=== PATIENT | male | born 1960 | race Caucasian/White ===

== ENCOUNTER 2018-05-16 15:23 | Emergency (ER) | payer OTHER ==
[2018-05-16 15:59] LABS: #Basophils 0.1 thou/uL (0.0-0.2); #Eosinphils 0.1 thou/uL (0.0-0.7); #Lymphocytes 1.5 thou/uL (1.20-3.40); #Monocytes 0.8 thou/uL (0.11-0.59); #Neutrophils 8.3 thou/uL (1.40-6.50); %Basophils 0.6 % (0.0-1.0); %Eosinophils 1.2 % (0.0-10.0); %Lymphocytes 14.3 % (21.0-51.0); %Monocytes 7.2 % (0.0-10.0); %Neutrophils 76.8 % (42.0-75.0); Hemoglobin 13.4 g/dL (14.0-18.0); Mean Corpuscular HGB CONC 34.1 g/dL (32.0-36.0); Mean Corpuscular Hemoglobin 32.2 pg (27.0-31.0); Mean Corpuscular Volume 94.3 fL (78.0-98.0); Mean Platelet Volume 8.9 fL (7.4-10.4); Platelet Count 310 thou/uL (130-400); RBC Distribution Width 12.5 % (11.5-14.5); Red Blood Cell (RBC) Count 4.17 mill/uL (4.70-6.10); White Blood Cell (WBC) Count 10.8 thou/uL (4.8-10.8)
[2018-05-16 16:24] LABS: ALT (SGPT) 18 U/L (8-55); AST (SGOT) 27 U/L (5-34); Albumin 4.3 g/dL (3.5-5.0); Alkaline Phosphatase 87 U/L (40-150); Anion Gap 13 mmol/L (10-20); BUN (Urea Nitrogen) 17 mg/dL (8.4-25.7); Bilirubin, Total 0.3 mg/dL (0.2-1.2); CK (CPK) 203 U/L (30-200); Calc. Creatinine Clearance 0 mL/min (70-130); Calcium 9.3 mg/dL (7.8-10.44); Carbon Dioxide 27 mmol/L (22-29); Chloride 103 mmol/L (98-107); Estimated GFR-MDRD 48; Globulin 3.5 g/dL (2.4-3.5); Glucose 103 mg/dL (70-105); Potassium 4.3 mmol/L (3.5-5.1); Protein, Total 7.8 g/dL (6.0-8.3); Sodium 139 mmol/L (136-145)
[2018-05-16 16:29] LABS: CKMB 3.4 ng/mL (0-6.6); Troponin I Less than 0.010 ng/mL (< 0.028)
--- NOTE | 2018-05-16 16:50 | RAD ---
CHEST 2 VIEWS: Date: 05/16/18 COMPARISON: None. HISTORY: Irregular heart rate. FINDINGS: Mild increased linear interstitial density noted with pulmonary hyperinflation. No pneumothorax or pl eural fluid is seen and there is no focal consolidation or alveolar edema. There is a nodular density overlying the right lung base measuring 1.1 cm in transverse dimension. IMPRESSION: No acute findings. Nodular density overlies the right lung base on the frontal view. This could repr esent a pulmonary nodule or nipple shadow. Correlation with follow-up imaging with nipple markers adv ised. CODE T. POS: [facility]
== END 2018-05-16 16:43 | disposition home or self-care (01) ==
LOC: ERS 15:23
DX: R00.2 Palpitations (principal); E03.9 Hypothyroidism, unspecified; F32.9 Major depressive disorder, single episode, unspecified; F17.210 Nicotine dependence, cigarettes, uncomplicated; Z79.899 Other long term (current) drug therapy
CPT/HCPCS: 36415; 71046; 80053; 82553; 84484; 85025; 93005

== ENCOUNTER 2018-05-30 07:40 | Outpatient (CLI) | payer OTHER ==
--- NOTE | 2018-05-30 12:02 | CT ---
CT THORAX WITH CONTRAST CT ABDOMEN WITH CONTRAST: Date: 05/30/18 HISTORY: 58-year-old male with ICD-10: C20 malignant neoplasm of rectum. Rectal cancer diagnosed via polypectomy. Evaluate for depth of invasion and extent of disease. Imani luate for metastatic disease. MRI pelvis ordered as well. TECHNIQUE: IV contrast: Isovue-M 300. Oral contrast: Readi-Cat. COMPARISON: None available. FINDINGS: Diffusely prominent interstitial markings. No suspicious pulmonary nodule. No consolidation, bronchie ctasis, pleural effusion, pneumothorax, cardiomegaly, pericardial effusion, mediastinal lymphadenopat hy, hilar lymphadenopathy, axillary lymphadenopathy, or obvious destructive osseous lesion. Focal are a of scarring in anterior segment of left upper lobe with mild tree-in-bud nodularity and a 0.8 x 0.4 cm focal calcification, suggestive of low grade inflammatory/infectious peribronchiolitis and/or seq uelae of such. Trachea and major bronchi patent and clear. Normal liver with no metastasis. Normal bilateral kidneys, pancreas, adrenals, and spleen. No abdomin al aortic aneurysm. A few mildly enlarged upper paraaortic lymph nodes (up to 1 cm long axis) and por ta hepatis lymph nodes. No mesenteric lymphadenopathy. No free fluid. Visualized portions of colon an d small intestine in upper abdomen demonstrate no obvious pathology. IMPRESSION: No convincing evidence of metastatic disease in the thorax or upper abdomen. POS: [facility]
== END 2018-05-30 07:41 | disposition home or self-care (01) ==
LOC: CT 07:40
PROVIDERS: ATTEND Internal Medicine Hematology & Oncology
DX: C20 Malignant neoplasm of rectum (principal)
CPT/HCPCS: 71260; 74160

== ENCOUNTER 2018-06-08 06:39 | Outpatient (CLI) | payer MEDICARE ==
--- NOTE | 2018-06-08 11:17 | MRI ---
MRI PELVIS WITH AND WITHOUT CONTRAST: Date: 06/08/18 HISTORY: Rectal cancer and polyp. COMPARISON: No exams for comparison. TECHNIQUE: Multiplanar, multisequence MRI pelvis performed prior to and after the intravenous administration of contrast. FINDINGS: There is no mucosal based mass appreciated within the rectum or the rectosigmoid. Of note, the cancer was seen within a polyp during a polypectomy. The mesorectal fat is intact. The lateral rectal merlos are intact. Peritoneal reflection is intact. No abnormal focal areas of T1 marrow signal replacement to suggest osseous metastatic disease. No héctor nopathy. 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 IMPRESSION: 1. No evidence for rectal cancer. 2. 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 Dr. Bobo notified of findings via telephone at 0940 hours. CODE CR. POS: [facility]
== END 2018-06-08 06:40 | disposition home or self-care (01) ==
LOC: MRI 06:39
PROVIDERS: ATTEND Internal Medicine Hematology & Oncology
DX: Z08 Encounter for follow-up examination after completed treatment for malignant neoplasm (principal); K60.4 Rectal fistula; Z85.048 Personal history of other malignant neoplasm of rectum, rectosigmoid junction, and anus
CPT/HCPCS: 72197

== ENCOUNTER 2020-04-17 06:36 | Outpatient (CLI) | payer OTHER ==
[2020-04-17 11:57] LABS: Bilirubin Neg (Negative); Blood, Urine Negative (Negative); Clarity Clear (Clear); Glucose, Urine (Dipstick) Normal (Negative); Hemoglobin 12.1 g/dL (14.0-18.0); Ketone, Urine Negative (Negative); Leukocyte Negative (Negative); Mean Corpuscular HGB CONC 32.6 G/DL (32.0-36.0); Mean Corpuscular Hemoglobin 29.7 PG (27.0-33.0); Mean Corpuscular Volume 90.9 fl (80.0-100.0); Mean Platelet Volume 11.5 fl (7.4-10.4); Nitrite Negative (Negative); Platelet Count 249 10x3/uL (130-400); Protein, Urine (Dipstick) Negative (Neg-Trace); RBC Distribution Width 14.4 % (11.5-14.5); Red Blood Cell (RBC) Count 4.08 10x6/uL (4.40-5.80); Specific Gravity, Urine 1.005 (1.002-1.036); Urobilinogen Normal mg/dL (Less than 2)
[2020-04-17 12:04] LABS: Anion Gap 17 mmol/L (10-20); BUN (Urea Nitrogen) 15 mg/dL (8.4-25.7); Calc. Creatinine Clearance 0 mL/min (70-130); Calcium 8.5 mg/dL (7.8-10.44); Carbon Dioxide 25 mmol/L (23-31); Chloride 100 mmol/L (98-107); Estimated GFR-MDRD 57; Glucose 79 mg/dL (80-115); Potassium 4.2 mmol/L (3.5-5.1); Sodium 138 mmol/L (136-145)
[2020-04-17 12:16] LABS: INR-International Normal Ratio 0.9
[2020-04-17 12:20] LABS: Band 4 % (5-11); Eosinophils 4 % (0-10); Lymphocytes 19 % (21-51); Neutrophil 68 % (42-75)
[2020-04-17 12:21] LABS: Monocytes 5 % (0-10); Platelet Morphology Comment Appears Adequate; Reactive Lymphocytes 0 % (0-10)
[2020-04-17 12:22] LABS: MDiff Complete? YES; RBC Morphology Normal
[2020-04-17 12:31] LABS: Bacteria/HPF Rare-Few HPF (None Seen); RBC/HPF 0-3 HPF (0-3); Squamous Epithelial 0-3 HPF (0-3); WBC/HPF 0-3 HPF (0-3)
--- NOTE | 2020-04-17 21:10 | EKG ---
Test Reason : Blood Pressure : / mmHG Vent. Rate : 062 BPM Atrial Rate : 062 BPM P-R Int : 128 ms QRS Dur : 080 ms QT Int : 450 ms P-R-T Axes : 066 041 053 degrees QTc Int : 456 ms Normal sinus rhythm Normal ECG No previous ECGs available Confirmed by Ines BECERRA ([id number]) on 04/17/2020 9:10:37 PM Referred By: IERO Confirmed By:Ines BECERRA
[2020-04-18 14:43] LABS: SARS-CoV-2 MS2 Positive; SARS-CoV-2 N Gene Negative; SARS-CoV-2 S Gene Negative; SARS-CoV-2 by NAA Not Detected (NotDetected); SARS-CoV-2 orf1ab Negative
== END 2020-04-17 06:37 | disposition home or self-care (01) ==
LOC: LABBT 06:36
PROVIDERS: ATTEND Orthopaedic Surgery
DX: Z01.818 Encounter for other preprocedural examination (principal); Z20.828 Contact with and (suspected) exposure to other viral communicable diseases; M17.11 Unilateral primary osteoarthritis, right knee
CPT/HCPCS: 80048; 81001; 85025; 85610; 87081; 87635; 93005; 93010; U0003

== ENCOUNTER 2020-04-17 12:00 | Observation (INO) | payer MEDICARE ==
[2020-04-19 09:25] VITALS: BMI 29.0
[2020-04-22] MEDS ORDERED: Vancomycin 1.5 GRAM/300 ML BAG ONE (07:20)
[2020-04-22] MEDS ORDERED: Tranexamic Acid 1,000 MG/10 ML VIAL ONE ×2 (07:20→11:44)
[2020-04-22] MEDS ORDERED: Sodium Chloride 0.9% 100 ML ONE (07:20)
[2020-04-22] MEDS ORDERED: Midazolam HCl 2 mg/2 ml Vial ONE (08:16)
[2020-04-22] MEDS ORDERED: Fentanyl 100 MCG/2 ML VIAL ONE ×3 (08:16→12:19)
[2020-04-22] MEDS ORDERED: Fentanyl 100 MCG/2 ML VIAL IV PRN (08:37)
[2020-04-22] MEDS ORDERED: HYDROcodone/Acetaminophen 5/325 mg Tablet PO PRN (08:45)
[2020-04-22] MEDS ORDERED: Promethazine HCl 25 MG/ML VIAL IM PRN ×3 (08:45→11:23)
[2020-04-22] MEDS ORDERED: Ropivacaine HCl/PF 250 ML in Premix Bag 1 BAG NERVE BLCK SCH (08:45)
[2020-04-22] MEDS ORDERED: traMADol HCl 50 MG TAB PO PRN ×2 (08:45)
[2020-04-22] MEDS ORDERED: Zolpidem Tartrate 5 MG TAB PO PRN ×2 (08:45→11:13)
[2020-04-22] MEDS ORDERED: Ondansetron PF 4 MG/2 ML Vial IVP PRN ×2 (08:45→11:13)
[2020-04-22] MEDS ORDERED: Bupivacaine PF 0.5% 30 ML VIAL ONE (09:15)
[2020-04-22] MEDS ORDERED: Hydrocortisone Sod Succ/PF 100 mg/2 ml Vial ONE (09:23)
[2020-04-22] MEDS ORDERED: diphenhydrAMINE 25 MG CAP PO PRN (11:13)
[2020-04-22] MEDS ORDERED: Acetaminophen 325 MG TAB PO PRN (11:13)
[2020-04-22] MEDS ORDERED: Tranexamic Acid 1,000 MG in Sodium Chloride 0.9% 100 ML IVPB SCH (11:15)
[2020-04-22] MEDS ORDERED: Promethazine HCl 25 MG/ML VIAL SLOW IVP PRN (11:23)
[2020-04-22] MEDS ORDERED: Ondansetron HCl/PF 4 MG/2 ML Vial IVP PRN (11:23)
[2020-04-22] MEDS ORDERED: Ketorolac Tromethamine 30 MG/ML VIAL ONE (11:43)
[2020-04-22] MEDS ORDERED: Ropivacaine 0.2% HCl/PF (40 MG/20 ML VIAL) ONE (11:43)
[2020-04-22] MEDS ORDERED: PROPOFOL 200 MG/20 ML VIAL ONE (11:43)
[2020-04-22] MEDS ORDERED: Dexamethasone 20 MG/5 ML VIAL ONE (11:43)
[2020-04-22] MEDS ORDERED: Ondansetron PF 4 MG/2 ML Vial ONE (11:43)
[2020-04-22] MEDS ORDERED: Bupivacaine HCl 0.5%/Epinephrine 1:200,000/PF 30 ml Vial ONE (11:43)
[2020-04-22] MEDS ORDERED: PHENYLEPHRINE-NS 100 MCG/ML 10 ML SYRINGE ONE ×2 (11:43→13:04)
[2020-04-22] MEDS: Sodium Chloride 0.9% 1,000 ML IV SCH ×2 (13:18→22:05)
[2020-04-22] MEDS: Ketorolac Tromethamine 30 MG/ML VIAL IVP SCH ×2 (13:18→17:11)
[2020-04-22] MEDS: HYDROcodone/Acetaminophen 5/325 mg Tablet PO PRN (16:28)
[2020-04-22] MEDS: CEFAZOLIN 2 GM in Premix Bag 1 BAG IVPB SCH (17:12)
[2020-04-22] MEDS ORDERED: Vancomycin 1 GM in Premix Bag 1 BAG IVPB SCH (20:00)
--- NOTE | 2020-04-22 21:57 | OP ---
DATE OF PROCEDURE: 04/22/2020 PREOPERATIVE DIAGNOSIS: Right knee osteoarthrosis. POSTOPERATIVE DIAGNOSIS: Right knee osteoarthrosis. PROCEDURES PERFORMED: Right total knee replacement using Bouf pinless navigation. DISPLAY FABRICATION SUPERVISOR: Eric Morfin PA-C. The chiropractic assistant surgeon was present throughout the entirety of the procedure to include the approach, the placement of the prosthetic implant, and full and final closure. ESTIMATED BLOOD LOSS: Minimal. ANESTHESIA: The patient did have a general anesthetic as well as a preoperative block. IMPLANTS: To the right knee includes triathlon total knee system. The femur was a size 4 primary cruciate retaining femur. We used a size 4 primary tibial base plate. We used a 4 x 11 mm CS X3 tibial bearing and an asymmetric 29 x 9 X3 patella. DISPOSITION: He did go to recovery room in stable condition. INDICATIONS: This is a 60-year-old male, who failed nonoperative treatment for right knee osteoarthritis and at this time is presenting for knee replacement. COMPLICATIONS: None. PROCEDURE IN DETAIL: After all appropriate consent forms were explained and signed, the patient was taken back to the operating room and at this time was given general anesthetic. Once the level of anesthesia was appropriate, a well-padded tourniquet was placed on the right leg, and the leg was then prepped and draped in standard surgical fashion. The limb was exsanguinated and tourniquet taken up to 300 mmHg. Midline incision was made with a 10 blade down through the skin and subcutaneous tissue. Bovie electrocautery was used to coagulate any brisk venous bleeding. A new blade was used to make a medial parapatellar arthrotomy. Small subperiosteal release was performed medially and excess fat pad was removed. The knee was flexed up to gain access to the femur. The femur was navigated and distal femoral resection was made. Epicondylar access was used to align our sizing jig and this was pinned in place. We sized our femur to be a size 4 primary cruciate retaining femur. 4:1 cutting block was applied and pinned. Anterior and posterior chamfer cuts were then made. We navigated out our proximal tibia and made our proximal tibial resection. Spreaders were used to remove any posterior osteophytes off the back of the femur as well as remaining meniscal tissue. A long alignment elif was then used to achieve correct rotation of our tibial baseplate and a size 4 primary tibial base plate was chosen. This was pinned in place. We trialed the polyethylene and a 4 x 11 mm CS X3 tibial bearing polyethylene gave us full extension and good stability throughout range of motion. Two towel clips and a saw were used to cut our patella. Three lug nuts were drilled and a 29 x 9 X3 patella was trialed which sat nicely in the trochlear groove. We then drilled our femur and punched our tibia. All components were removed. The knee was thoroughly irrigated and dried. Cement was mixed into the cement gun on the back table. Components were then placed. The knee was held out in full extension until the cement had dried. All excess bone cement was removed. Multiple #2 Vicryl stitches as well as a Quill were used to close our extensor mechanism. 0 Quill followed by a running Monoderm was then used to close the skin. Surgicel glue was then used on the skin. Once this had dried, soft tissue dressing was applied to the limb, tourniquet was let down, and the toes pinked up nicely. The patient was then awakened and taken to the recovery room in stable condition. All counts were correct at the end of the case. The patient did receive preoperative IV antibiotics. The patient was injected with Marcaine for postoperative pain relief. Job ID: [id number]
[2020-04-22] MEDS: Aspirin 81 mg Enteric Coated Tablet PO SCH (22:04)
[2020-04-22] MEDS: Hydrocortisone 10 mg Tablet PO SCH (22:04)
[2020-04-23] MEDS: Ketorolac Tromethamine 30 MG/ML VIAL IVP SCH ×5 (00:25→23:29)
[2020-04-23] MEDS: CEFAZOLIN 2 GM in Premix Bag 1 BAG IVPB SCH (00:26)
[2020-04-23] MEDS: HYDROcodone/Acetaminophen 5/325 mg Tablet PO PRN ×4 (01:44→18:29)
[2020-04-23] MEDS: Levothyroxine Sodium 50 MCG TAB PO SCH (05:13)
[2020-04-23 05:29] LABS: Hemoglobin 10.3 g/dL (14.0-18.0); Mean Corpuscular HGB CONC 34.3 g/dL (32.0-36.0); Mean Corpuscular Hemoglobin 31.6 pg (27.0-31.0); Mean Corpuscular Volume 92.4 fL (78.0-98.0); Mean Platelet Volume 9.6 fL (7.4-10.4); Platelet Count 195 thou/uL (130-400); RBC Distribution Width 13.4 % (11.5-14.5); Red Blood Cell (RBC) Count 3.26 mill/uL (4.70-6.10); White Blood Cell (WBC) Count 18.1 thou/uL (4.8-10.8)
[2020-04-23] MEDS: Sodium Chloride 0.9% 1,000 ML IV SCH ×2 (06:19→13:22)
[2020-04-23] MEDS: Senokot S 8.6-50 MG TAB PO SCH ×2 (09:00→21:30)
[2020-04-23] MEDS: Multivitamin W/ Minerals 1 TAB PO SCH (09:00)
[2020-04-23] MEDS: Hydrocortisone 10 mg Tablet PO SCH ×2 (09:00→21:30)
[2020-04-23] MEDS: Aspirin 81 mg Enteric Coated Tablet PO SCH ×2 (09:00→21:30)
[2020-04-23] MEDS: Ferrous Gluconate 324 MG TAB PO SCH ×2 (09:00→21:30)
[2020-04-24] MEDS: Sodium Chloride 0.9% 1,000 ML IV SCH (03:29)
[2020-04-24] MEDS: HYDROcodone/Acetaminophen 5/325 mg Tablet PO PRN ×3 (03:33→13:28)
[2020-04-24] MEDS: Ketorolac Tromethamine 30 MG/ML VIAL IVP SCH (05:41)
[2020-04-24] MEDS: Levothyroxine Sodium 50 MCG TAB PO SCH (05:42)
[2020-04-24 07:06] LABS: Hemoglobin 8.9 g/dL (14.0-18.0); Mean Corpuscular HGB CONC 32.6 g/dL (32.0-36.0); Mean Corpuscular Hemoglobin 30.9 pg (27.0-31.0); Mean Corpuscular Volume 94.8 fL (78.0-98.0); Mean Platelet Volume 10.4 fL (7.4-10.4); Platelet Count 152 thou/uL (130-400); RBC Distribution Width 13.4 % (11.5-14.5); Red Blood Cell (RBC) Count 2.88 mill/uL (4.70-6.10)
[2020-04-24] MEDS: Hydrocortisone 10 mg Tablet PO SCH (08:19)
[2020-04-24] MEDS: Ferrous Gluconate 324 MG TAB PO SCH (08:19)
[2020-04-24] MEDS: Aspirin 81 mg Enteric Coated Tablet PO SCH (08:19)
[2020-04-24] MEDS: Multivitamin W/ Minerals 1 TAB PO SCH (08:19)
[2020-04-24] MEDS: Senokot S 8.6-50 MG TAB PO SCH (08:20)
[2020-04-24 14:56] VITALS: BP 127/77; TEMP 97.8
--- NOTE | 2020-04-25 14:29 | DIS ---
DATE OF ADMISSION: 04/22/2020 DATE OF DISCHARGE: 04/24/2020 This is Eric Morfin PA-C dictating a report for Kam Pichardo MD. PREOPERATIVE DIAGNOSIS: Right knee osteoarthritis. POSTOPERATIVE DIAGNOSIS: Right knee osteoarthritis. PROCEDURE: The patient underwent a right total knee replacement. HOSPITAL STAY: Unremarkable. Admitted to [address], where he worked with staff, Physical therapy, Occupational therapy, and progressed quite well. By postop day #2, he was ready to discharge home. DISCHARGE CONDITION: Good/stable. DISPOSITION: Home with family. FOLLOWUP: Would be in 10 to 14 days or sooner if there are problems or concerns. Job ID: [id number]
== END 2020-04-24 17:20 | disposition home or self-care (01) ==
LOC: SJJU 04-22 07:13 → INTOOBSV 04-22 07:13 → EDSTATUS 04-22 12:00 → SJJU 04-22 13:05
PROVIDERS: ADMIT Orthopaedic Surgery; ATTEND Orthopaedic Surgery
PROC: 0SRC0J9 Replacement of Right Knee Joint with Synthetic Substitute, Cemented, Open Approach (ICD-10-PCS; principal; 2020-04-22)
PROC: 8E0YXBZ Computer Assisted Procedure of Lower Extremity (ICD-10-PCS; 2020-04-22)
PROC: 3E0T3BZ Introduction of Anesthetic Agent into Peripheral Nerves and Plexi, Percutaneous Approach (ICD-10-PCS; 2020-04-22)
PROC: 3E0T3BZ Introduction of Anesthetic Agent into Peripheral Nerves and Plexi, Percutaneous Approach (ICD-10-PCS; 2020-04-22)
DX: M17.11 Unilateral primary osteoarthritis, right knee (principal); G89.18 Other acute postprocedural pain; E03.9 Hypothyroidism, unspecified; F17.210 Nicotine dependence, cigarettes, uncomplicated; E89.3 Postprocedural hypopituitarism; Z79.899 Other long term (current) drug therapy; Z88.5 Allergy status to narcotic agent
CPT/HCPCS: 20985; 27447; 64445; 64448; 85027 ×2; 96374; 97110 ×2; 97116 ×3; 97139 ×2; 98960; C1713; C1776; G0378; 36415; J0690; J1100; J1720; J1885; J2250; J2405; J2704; J2795; J3010; J3370; J3490; S0020

== ENCOUNTER 2020-11-20 08:03 | Emergency (ER) | payer MEDICARE ==
[2020-11-20] MEDS ORDERED: Cyclobenzaprine 10 MG TAB ONE (08:39)
[2020-11-20] MEDS ORDERED: Acetaminophen/Codeine 30-300mg Tablet ONE (08:39)
[2020-11-20] MEDS ORDERED: Acetaminophen 500 MG TAB ONE (08:59)
== END 2020-11-20 10:08 | disposition home or self-care (01) ==
LOC: ERS 08:03
DX: M25.552 Pain in left hip (principal); Z79.899 Other long term (current) drug therapy; E03.9 Hypothyroidism, unspecified; F17.210 Nicotine dependence, cigarettes, uncomplicated
CPT/HCPCS: 72170

== ENCOUNTER 2020-11-29 16:33 | Emergency (ER) | payer MEDICARE ==
[2020-11-29] MEDS ORDERED: diphenhydrAMINE 50 MG/ML VIAL ONE (18:39)
== END 2020-11-29 17:14 | disposition left against medical advice (07) ==
LOC: ERS 16:33
DX: Z53.21 Procedure and treatment not carried out due to patient leaving prior to being seen by health care provider (principal)
CPT/HCPCS: J1200

== ENCOUNTER 2020-11-29 18:00 | Emergency (ER) | payer MEDICARE ==
[2020-11-29] MEDS ORDERED: Famotidine/PF 20 mg/2ml Vial ONE (18:15)
== END 2020-11-29 19:57 | disposition home or self-care (01) ==
LOC: ERS 18:00
DX: L50.0 Allergic urticaria (principal); F17.210 Nicotine dependence, cigarettes, uncomplicated; Z79.899 Other long term (current) drug therapy
CPT/HCPCS: 96374; 96375; J1200; S0028

== ENCOUNTER 2022-07-22 12:17 | Outpatient (CLI) | payer MEDICARE ==
[2022-07-22 14:13] LABS: #Basophils 0.1 10x3/uL (0.0-0.2); #Eosinphils 0.3 10x3/uL (0.0-0.5); #Neutrophils 5.1 10x3/uL (1.5-8.4); %Basophils 0.9 % (0.0-2.0); %Eosinophils 3.9 % (0.0-6.0); %Lymphocytes 16.9 % (18.0-47.0); %Monocytes 12.3 % (0.0-10.0); %Neutrophils 65.5 % (40.0-75.0); Hemoglobin 12.8 g/dL (13.5-17.5); Mean Corpuscular HGB CONC 35.3 g/dL (32.0-36.0); Mean Corpuscular Hemoglobin 29.7 pg (27.0-33.0); Mean Corpuscular Volume 84.2 fl (81.2-95.1); Mean Platelet Volume 12.5 fl (7.4-10.4); Platelet Count 308 10x3/uL (150-450); RBC Distribution Width 13.1 % (11.5-14.5); Red Blood Cell (RBC) Count 4.31 10x6/uL (4.32-5.72); White Blood Cell (WBC) Count 7.8 10x3/uL (3.5-10.5)
[2022-07-22 14:45] LABS: Anion Gap 16 mmol/L (10-20); BUN (Urea Nitrogen) 9 mg/dL (8.4-25.7); Calc. Creatinine Clearance 0 mL/min (70-130); Carbon Dioxide 23 mmol/L (23-31); Chloride 89 mmol/L (98-107); Estimated GFR 77; Glucose 79 mg/dL (80-115); Potassium 4.2 mmol/L (3.5-5.1); Sodium 124 mmol/L (136-145)
== END 2022-07-22 12:18 | disposition home or self-care (01) ==
LOC: LABBT 12:17
PROVIDERS: ATTEND Orthopaedic Surgery
DX: Z01.812 Encounter for preprocedural laboratory examination (principal); M87.852 Other osteonecrosis, left femur
CPT/HCPCS: 80048; 85025; 85610; 87081

== ENCOUNTER 2022-07-23 05:41 | Inpatient (IN) | payer MEDICARE ==
[2022-07-22 10:11] VITALS: BMI 28.3
[2022-07-23] MEDS ORDERED: Sodium Chloride 0.9% 100 ML ONE ×2 (05:59→07:10)
[2022-07-23] MEDS ORDERED: Tranexamic Acid 1,000 MG/10 ML VIAL ONE (05:59)
[2022-07-23] MEDS ORDERED: Vancomycin 1 GM/200 ML (FROZEN) BAG ONE (05:59)
[2022-07-23] MEDS ORDERED: Midazolam HCl 2 mg/2 ml Vial ONE (06:23)
[2022-07-23] MEDS ORDERED: fentaNYL PF 100 MCG/2 ML SYRINGE ONE (06:24)
[2022-07-23] MEDS ORDERED: Propofol 1,000 MG/100 ML VIAL IV ONE (06:24)
[2022-07-23] MEDS ORDERED: Bupivacaine PF 0.5% 30 ML VIAL ONE ×2 (06:40→11:01)
[2022-07-23] MEDS ORDERED: Zolpidem Tartrate 5 MG TAB PO PRN (06:55)
[2022-07-23] MEDS ORDERED: Fentanyl 100 MCG/2 ML VIAL SLOW IVP PRN (06:55)
[2022-07-23] MEDS ORDERED: Promethazine HCl 25 MG/ML VIAL IM PRN (06:55)
[2022-07-23] MEDS ORDERED: HYDROcodone/Acetaminophen 10/325 mg Tablet PO PRN (06:55)
[2022-07-23] MEDS ORDERED: Ondansetron PF 4 MG/2 ML Vial IVP PRN (06:55)
[2022-07-23 07:07] LABS: SARS-CoV-2 NAA Rapid Test Not Detected (NotDetected)
[2022-07-23] MEDS ORDERED: CEFAZOLIN 2 GM VIAL ONE (07:10)
[2022-07-23] MEDS ORDERED: ePHEDrine 50 MG/ML VIAL ONE (07:30)
[2022-07-23] MEDS ORDERED: PHENYLEPHRINE-NS 100 MCG/ML 10 ML SYRINGE ONE ×2 (07:30→10:34)
[2022-07-23] MEDS ORDERED: hydrALAZINE 20 MG/ML VIAL ONE (09:29)
[2022-07-23] MEDS ORDERED: ePHEDrine 50 MG/ML VIAL IM SCH (10:15)
[2022-07-23] MEDS: Sodium Chloride 0.9% 1,000 ML IV SCH ×3 (11:36→21:13)
[2022-07-23] MEDS: Aspirin 81 mg Enteric Coated Tablet PO SCH ×3 (11:37→21:14)
[2022-07-23] MEDS: Hydrocortisone 10 mg Tablet PO SCH (11:37)
[2022-07-23] MEDS: HYDROcodone/Acetaminophen 10/325 mg Tablet PO PRN ×2 (13:51→23:56)
[2022-07-23] MEDS: CEFAZOLIN 2 GM in Sodium Chloride 0.9% 100 ML IVPB SCH ×2 (13:51→23:45)
[2022-07-23] MEDS ORDERED: Hydrocortisone 10 mg Tablet PO SCH (17:00)
[2022-07-24 06:25] LABS: Hemoglobin 10.7 g/dL (14.0-18.0); Mean Corpuscular HGB CONC 33.9 g/dL (32.0-36.0); Mean Corpuscular Hemoglobin 30.6 pg (27.0-31.0); Mean Corpuscular Volume 90.2 fl (78.0-98.0); Mean Platelet Volume 10.3 fL (7.4-10.4); Platelet Count 197 10x3/uL (130-400); RBC Distribution Width 12.6 % (11.5-14.5); Red Blood Cell (RBC) Count 3.49 mill/uL (4.70-6.10); White Blood Cell (WBC) Count 14.5 10x3/uL (4.8-10.8)
[2022-07-24] MEDS: Hydrocortisone 10 mg Tablet PO SCH (09:22)
[2022-07-24] MEDS: Ferrous Gluconate 324 MG TAB PO SCH ×2 (09:23→18:32)
[2022-07-24] MEDS: Senokot S 8.6-50 MG TAB PO SCH ×2 (09:23→20:48)
[2022-07-24] MEDS: Aspirin 81 mg Enteric Coated Tablet PO SCH ×2 (09:23→20:48)
[2022-07-24] MEDS: Acetaminophen 325 MG TAB PO PRN (09:23)
[2022-07-24] MEDS: Multivitamin W/ Minerals 1 TAB PO SCH (09:23)
[2022-07-24] MEDS: traMADol HCl 50 MG TAB PO PRN ×3 (09:24→23:56)
[2022-07-24] MEDS ORDERED: Hydrocortisone Sod Succ/PF 100 mg/2 ml Vial IVP SCH (11:15)
[2022-07-24 11:26] LABS: ALT (SGPT) 8 U/L (8-55); AST (SGOT) 35 U/L (5-34); Albumin 3.1 g/dL (3.4-4.8); Alkaline Phosphatase 59 U/L (40-110); Anion Gap 9 mmol/L (10-20); BUN (Urea Nitrogen) 13 mg/dL (8.4-25.7); Bilirubin, Total 0.9 mg/dL (0.2-1.2); Calc. Creatinine Clearance 66 mL/min (70-130); Calcium 7.8 mg/dL (7.8-10.44); Carbon Dioxide 20 mmol/L (23-31); Chloride 98 mmol/L (98-107); Estimated GFR 66; Globulin 2.2 g/dL (2.4-3.5); Glucose 94 mg/dL (80-115); Potassium 4.1 mmol/L (3.5-5.1); Protein, Total 5.3 g/dL (5.8-8.1); Sodium 123 mmol/L (136-145)
[2022-07-24] MEDS: Sodium Chloride 0.9% 1,000 ML IV SCH ×2 (12:03→18:32)
[2022-07-24] MEDS: Nicotine 14 MG PATCH TD SCH (12:06)
[2022-07-24 16:54] LABS: Bacteria/HPF None Seen HPF (None Seen); Bilirubin Negative (Negative); Blood, Urine Negative (Negative); Clarity Clear (Clear); Glucose, Urine (Dipstick) Normal (Negative); Ketone, Urine Negative (Negative); Leukocyte Negative Leu/uL (Negative); Nitrite Negative (Negative); Protein, Urine (Dipstick) Negative (Neg-Trace); RBC/HPF 0-3 HPF (0-3); Specific Gravity, Urine 1.011 (1.002-1.036); Squamous Epithelial None Seen HPF (0-3); Urobilinogen Normal mg/dL (Less than 2); WBC/HPF 0-3 HPF (0-3); pH, Urine 5.5 (5.0-9.0)
[2022-07-24 17:45] LABS: Creatinine, Urine 92.55 mg/dL (63-166)
[2022-07-24] MEDS: Hydrocortisone Sod Succ/PF 100 mg/2 ml Vial IVP SCH ×2 (18:32→23:58)
[2022-07-25 01:47] LABS: Anion Gap 10 mmol/L (10-20); BUN (Urea Nitrogen) 11 mg/dL (8.4-25.7); Calc. Creatinine Clearance 81 mL/min (70-130); Calcium 8.3 mg/dL (7.8-10.44); Carbon Dioxide 21 mmol/L (23-31); Chloride 101 mmol/L (98-107); Estimated GFR 83; Glucose 122 mg/dL (80-115); Potassium 3.9 mmol/L (3.5-5.1); Sodium 128 mmol/L (136-145)
[2022-07-25] MEDS: Sodium Chloride 0.9% 1,000 ML IV SCH ×4 (02:46→22:01)
[2022-07-25] MEDS: Hydrocortisone Sod Succ/PF 100 mg/2 ml Vial IVP SCH (04:32)
[2022-07-25 06:11] LABS: Hemoglobin 9.5 g/dL (14.0-18.0); Mean Corpuscular HGB CONC 34.5 g/dL (32.0-36.0); Mean Corpuscular Hemoglobin 31.2 pg (27.0-31.0); Mean Corpuscular Volume 90.7 fl (78.0-98.0); Mean Platelet Volume 10.5 fL (7.4-10.4); Platelet Count 182 10x3/uL (130-400); RBC Distribution Width 12.8 % (11.5-14.5); Red Blood Cell (RBC) Count 3.04 mill/uL (4.70-6.10); White Blood Cell (WBC) Count 17.7 10x3/uL (4.8-10.8)
[2022-07-25 06:25] LABS: Anion Gap 9 mmol/L (10-20); BUN (Urea Nitrogen) 9 mg/dL (8.4-25.7); Calc. Creatinine Clearance 92 mL/min (70-130); Calcium 8.2 mg/dL (7.8-10.44); Carbon Dioxide 20 mmol/L (23-31); Chloride 102 mmol/L (98-107); Estimated GFR 96; Glucose 119 mg/dL (80-115); Sodium 127 mmol/L (136-145)
[2022-07-25] MEDS: Aspirin 81 mg Enteric Coated Tablet PO SCH ×2 (09:47→20:41)
[2022-07-25] MEDS: Ferrous Gluconate 324 MG TAB PO SCH ×2 (09:48→18:49)
[2022-07-25] MEDS: Senokot S 8.6-50 MG TAB PO SCH ×2 (09:48→20:41)
[2022-07-25] MEDS: Multivitamin W/ Minerals 1 TAB PO SCH (09:48)
[2022-07-25] MEDS: traMADol HCl 50 MG TAB PO PRN ×2 (09:49→14:15)
[2022-07-25] MEDS: Nicotine 14 MG PATCH TD SCH (13:29)
[2022-07-25] MEDS: diphenhydrAMINE 25 MG CAP PO PRN ×2 (16:24→22:01)
[2022-07-25] MEDS: Hydrocortisone 10 mg Tablet PO SCH (18:49)
[2022-07-26 05:30] LABS: Hemoglobin 8.3 g/dL (14.0-18.0); Mean Corpuscular HGB CONC 33.4 g/dL (32.0-36.0); Mean Corpuscular Hemoglobin 30.8 pg (27.0-31.0); Mean Corpuscular Volume 92.3 fl (78.0-98.0); Mean Platelet Volume 10.8 fL (7.4-10.4); Platelet Count 191 10x3/uL (130-400); Red Blood Cell (RBC) Count 2.69 mill/uL (4.70-6.10); White Blood Cell (WBC) Count 11.4 10x3/uL (4.8-10.8)
[2022-07-26 05:54] LABS: Anion Gap 12 mmol/L (10-20); BUN (Urea Nitrogen) 11 mg/dL (8.4-25.7); Calc. Creatinine Clearance 90 mL/min (70-130); Calcium 8.3 mg/dL (7.8-10.44); Carbon Dioxide 20 mmol/L (23-31); Chloride 105 mmol/L (98-107); Estimated GFR 95; Glucose 77 mg/dL (80-115); Potassium 4.1 mmol/L (3.5-5.1); Sodium 133 mmol/L (136-145)
[2022-07-26] MEDS: Sodium Chloride 0.9% 1,000 ML IV SCH ×4 (06:48→20:40)
[2022-07-26] MEDS: Acetaminophen 325 MG TAB PO PRN ×2 (09:21→13:20)
[2022-07-26] MEDS: Hydrocortisone 10 mg Tablet PO SCH ×2 (09:21→18:22)
[2022-07-26] MEDS: Ferrous Gluconate 324 MG TAB PO SCH ×2 (09:21→18:21)
[2022-07-26] MEDS: traMADol HCl 50 MG TAB PO PRN ×3 (09:22→20:39)
[2022-07-26] MEDS: Senokot S 8.6-50 MG TAB PO SCH ×2 (09:23→20:42)
[2022-07-26] MEDS: Aspirin 81 mg Enteric Coated Tablet PO SCH ×2 (09:23→20:39)
[2022-07-26] MEDS: Multivitamin W/ Minerals 1 TAB PO SCH (09:23)
[2022-07-26] MEDS: Nicotine 14 MG PATCH TD SCH (13:14)
[2022-07-27] MEDS: Sodium Chloride 0.9% 1,000 ML IV SCH ×2 (05:15→15:47)
[2022-07-27] MEDS: traMADol HCl 50 MG TAB PO PRN ×2 (05:15→12:06)
[2022-07-27 05:30] LABS: #Eosinphils 0.3 thou/uL (0.0-0.7); #Lymphocytes 1.1 thou/uL (1.20-3.40); #Monocytes 0.7 thou/uL (0.11-0.59); #Neutrophils 7.5 thou/uL (1.40-6.50); %Basophils 0.3 % (0.0-1.0); %Lymphocytes 11.7 % (21.0-51.0); %Monocytes 7.5 % (0.0-10.0); %Neutrophils 77.5 % (42.0-75.0); Hemoglobin 9.7 g/dL (14.0-18.0); Mean Corpuscular HGB CONC 34.4 g/dL (32.0-36.0); Mean Corpuscular Hemoglobin 31.8 pg (27.0-31.0); Mean Corpuscular Volume 92.6 fl (78.0-98.0); Mean Platelet Volume 10.2 fL (7.4-10.4); Platelet Count 225 10x3/uL (130-400); Red Blood Cell (RBC) Count 3.04 mill/uL (4.70-6.10); White Blood Cell (WBC) Count 9.6 10x3/uL (4.8-10.8)
[2022-07-27 06:05] LABS: Anion Gap 10 mmol/L (10-20); BUN (Urea Nitrogen) 9 mg/dL (8.4-25.7); Calc. Creatinine Clearance 104 mL/min (70-130); Calcium 8.3 mg/dL (7.8-10.44); Carbon Dioxide 24 mmol/L (23-31); Chloride 103 mmol/L (98-107); Estimated GFR 100; Glucose 79 mg/dL (80-115); Potassium 3.1 mmol/L (3.5-5.1); Sodium 134 mmol/L (136-145)
[2022-07-27] MEDS: Ferrous Gluconate 324 MG TAB PO SCH (08:37)
[2022-07-27] MEDS: Aspirin 81 mg Enteric Coated Tablet PO SCH (08:37)
[2022-07-27] MEDS: Multivitamin W/ Minerals 1 TAB PO SCH (08:38)
[2022-07-27] MEDS: Hydrocortisone 10 mg Tablet PO SCH (08:38)
[2022-07-27] MEDS: Senokot S 8.6-50 MG TAB PO SCH (08:38)
[2022-07-27 11:40] VITALS: TEMP 98.4
[2022-07-27] MEDS: Nicotine 14 MG PATCH TD SCH (12:02)
[2022-07-27 15:49] VITALS: BP 126/71
== END 2022-07-27 15:23 | DRG 470 ==
LOC: SDC 05:41 → SURG A 11:26 → OBSVTOIN 07-24 11:46
PROVIDERS: ADMIT Orthopaedic Surgery; ATTEND Orthopaedic Surgery
PROC: 0SRB0J9 Replacement of Left Hip Joint with Synthetic Substitute, Cemented, Open Approach (ICD-10-PCS; principal; 2022-07-23)
DX: M16.12 Unilateral primary osteoarthritis, left hip (principal); E23.0 Hypopituitarism; E87.1 Hypo-osmolality and hyponatremia; E27.40 Unspecified adrenocortical insufficiency; M87.88 Other osteonecrosis, other site; Z96.651 Presence of right artificial knee joint; K21.9 Gastro-esophageal reflux disease without esophagitis; D64.9 Anemia, unspecified; F17.210 Nicotine dependence, cigarettes, uncomplicated; Z20.822 Contact with and (suspected) exposure to COVID-19; E03.9 Hypothyroidism, unspecified; D72.829 Elevated white blood cell count, unspecified; F32.A Depression, unspecified; I95.9 Hypotension, unspecified; Z88.5 Allergy status to narcotic agent; Z98.890 Other specified postprocedural states; Z88.8 Allergy status to other drugs, medicaments and biological substances
CPT/HCPCS: 36415; 51798; 80048; 80053; 81001; 82533; 82570; 83930; 83935; 84300; 84443; 84550; 85025; 85027; 85610; 87081; 96361; 96374; 96375; 96376; C1776; G0378; J0360; J1720; J2250; J2405; J2704; J3010; J3370-JW; J3490; J7050; S0020; U0002

== ENCOUNTER 2022-12-18 11:00 | Emergency (ER) | payer OTHER, MEDICARE | END 2022-12-18 11:49 | disposition home or self-care (01) | LOC: ERS 11:00 | DX: M25.562 Pain in left knee (principal); F17.210 Nicotine dependence, cigarettes, uncomplicated; W01.0XXA Fall on same level from slipping, tripping and stumbling without subsequent striking against object, initial encounter ==

== ENCOUNTER 2024-04-27 10:32 | Emergency (ER) | payer MEDICARE ==
[2024-04-27] MEDS ORDERED: Ketorolac Tromethamine 30 MG (1 mL) VIAL ONE (12:00)
== END 2024-04-27 14:41 | disposition home or self-care (01) ==
LOC: ERS 10:32
DX: M25.512 Pain in left shoulder (principal); M75.32 Calcific tendinitis of left shoulder; F17.210 Nicotine dependence, cigarettes, uncomplicated
CPT/HCPCS: 73030; 73200; 96372; 99283; J1885

== ENCOUNTER 2024-05-08 23:55 | Inpatient (IN) | payer MEDICARE ==
[2024-05-09 00:26] LABS: #Basophils 0.08 10x3/uL (0.0-0.2); %Basophils 0.8 % (0.0-1.0); %Eosinophils 1.1 % (0.0-10.0); %Lymphocytes 13.9 % (21.0-51.0); %Monocytes 6.3 % (0.0-10.0); %Neutrophils 77.6 % (42.0-75.0); Hematocrit 36.7 % (42.0-52.0); Hemoglobin 13.2 g/dL (14.0-18.0); Mean Corpuscular Hemoglobin 27.7 pg (27.0-31.0); Mean Corpuscular Volume 77.1 fL (78.0-98.0); Mean Platelet Volume 10.2 fL (7.4-10.4); Platelet Count 348 10x3/uL (130-400); RBC Distribution Width 13.7 % (11.5-14.5); Red Blood Cell (RBC) Count 4.76 mill/uL (4.70-6.10)
[2024-05-09 00:40] LABS: ALT (SGPT) 6 U/L (8-55); AST (SGOT) 23 U/L (5-34); Albumin 4.5 g/dL (3.4-4.8); Alkaline Phosphatase 99 U/L (40-110); Anion Gap 17 mmol/L (10-20); BUN (Urea Nitrogen) 5 mg/dL (8.4-25.7); Bilirubin, Total 0.7 mg/dL (0.2-1.2); Calc. Creatinine Clearance 0 mL/min (70-130); Calcium 9.7 mg/dL (7.8-10.44); Carbon Dioxide 19 mmol/L (23-31); Chloride 91 mmol/L (98-107); Estimated GFR 86; Globulin 3.9 g/dL (2.4-3.5); Glucose 93 mg/dL (80-115); Magnesium 1.8 mg/dL (1.6-2.6); Potassium 4.3 mmol/L (3.5-5.1); Protein, Total 8.4 g/dL (5.8-8.1); Sodium 123 mmol/L (136-145)
[2024-05-09 00:46] LABS: Troponin I Less than 0.010 ng/mL (< 0.028)
[2024-05-09] MEDS ORDERED: Acetaminophen 500 MG TAB ONE (00:59)
[2024-05-09 01:24] LABS: Actual Bicarbonate (HCO3v) 22.2 mEq/L (22-28); Base Excess -0.7 mEq/L (-2.0 to +3.0); Calcium, Ionized (venous) 0.99 mmol/L (1.16-1.32); Chloride (VBG) 90 mmol/L (98-106); Hematocrit-VBG 37 % (42.0-52.0); Hemoglobin (Hb) 12.6 g/dL (12.6-17.4); Sodium 121 mmol/L (133-146); pH (venous) 7.465 (7.32-7.43)
[2024-05-09 01:40] LABS: Amphetamine Not Detected (NotDetected); Barbiturates Screen Not Detected (NotDetected); Benzodiazepine Screen Not Detected (NotDetected); Cocaine Metabolite Screen Not Detected (NotDetected); Methadone Not Detected (NotDetected); Methamphetamine Not Detected (NotDetected); Opiate Screen Not Detected (NotDetected); Oxycodone Screen Not Detected (NotDetected); Phencyclidine (PCP) Not Detected (NotDetected); THC/Cannabinoid Screen Not Detected (NotDetected); Tricyclic Screen Not Detected (NotDetected)
[2024-05-09 01:47] LABS: Acetaminophen Less than 10 mcg/mL (Less than 10); Alcohol Less than 10.0 mg/dL (Less than 10); Salicylate Less than 8.0 mg/dL (Less than 8.0)
[2024-05-09] MEDS ORDERED: Morphine 4 MG/ML VIAL ONE (02:01)
[2024-05-09] MEDS ORDERED: fentaNYL 50 mcg/mL 1 mL Vial ONE (02:05)
[2024-05-09] MEDS ORDERED: Ondansetron PF 4 MG/2 ML Vial IVP PRN (03:39)
[2024-05-09] MEDS ORDERED: Acetaminophen 650 MG Suppository PR PRN (03:39)
[2024-05-09] MEDS: Sodium Chloride 0.9% 500 ML IV SCH (04:15)
[2024-05-09 04:29] VITALS: BMI 24.5
[2024-05-09] MEDS: Ondansetron ODT 4 MG TAB PO PRN (05:27)
[2024-05-09] MEDS: Acetaminophen 325 MG TAB PO SCH (06:18)
[2024-05-09] MEDS ORDERED: Hydrocortisone 10 mg Tablet PO SCH (09:00)
[2024-05-09] MEDS: Famotidine 20 MG TAB PO SCH (09:21)
[2024-05-09] MEDS: Pantoprazole DR 40 MG TAB PO SCH (09:21)
[2024-05-09] MEDS: Sodium Chloride 1 GM TAB PO SCH (09:22)
[2024-05-09] MEDS: Amlodipine 5 MG TAB PO SCH (09:22)
[2024-05-09] MEDS: Hydrocortisone 10 mg Tablet PO SCH (09:22)
[2024-05-09] MEDS: Famotidine/PF 20 mg/2ml Vial SLOW IVP SCH (09:36)
[2024-05-09] MEDS ORDERED: Nicotine 21 MG PATCH TD SCH (12:02)
[2024-05-09 12:24] LABS: Anion Gap 12 mmol/L (10-20); BUN (Urea Nitrogen) 5 mg/dL (8.4-25.7); Calc. Creatinine Clearance 86 mL/min (70-130); Calcium 8.4 mg/dL (7.8-10.44); Carbon Dioxide 21 mmol/L (23-31); Chloride 92 mmol/L (98-107); Estimated GFR 98; Glucose 87 mg/dL (80-115); Potassium 3.8 mmol/L (3.5-5.1); Sodium 121 mmol/L (136-145)
[2024-05-09] MEDS: Nicotine 21 MG PATCH TD SCH (13:18)
[2024-05-09] MEDS: Sodium Chloride 256 MEQ in Sterile Water 936 ML IV SCH (16:43)
[2024-05-09 21:11] VITALS: BP 148/89; TEMP 98
[2024-05-09 21:21] LABS: Anion Gap 11 mmol/L (10-20); BUN (Urea Nitrogen) 6 mg/dL (8.4-25.7); Calc. Creatinine Clearance 86 mL/min (70-130); Calcium 8.3 mg/dL (7.8-10.44); Carbon Dioxide 20 mmol/L (23-31); Chloride 92 mmol/L (98-107); Estimated GFR 98; Glucose 93 mg/dL (80-115); Potassium 3.9 mmol/L (3.5-5.1); Sodium 119 mmol/L (136-145)
[2024-05-10] MEDS ORDERED: Nicotine 21 MG PATCH TD SCH (09:00)
[2024-05-15 15:30] LABS: ALT (SGPT) 5 U/L (8-55); AST (SGOT) 15 U/L (5-34); Albumin 4.2 g/dL (3.4-4.8); Alkaline Phosphatase 77 U/L (40-110); Anion Gap 13 mmol/L (10-20); BUN (Urea Nitrogen) 11 mg/dL (8.4-25.7); Bilirubin, Total 0.8 mg/dL (0.2-1.2); CK (CPK) 160 U/L (30-200); Calc. Creatinine Clearance 63 mL/min (70-130); Carbon Dioxide 19 mmol/L (23-31); Chloride 103 mmol/L (98-107); Estimated GFR 74; Globulin 3.3 g/dL (2.4-3.5); Glucose 130 mg/dL (80-115); Potassium 4.1 mmol/L (3.5-5.1); Protein, Total 7.5 g/dL (5.8-8.1); Sodium 131 mmol/L (136-145)
== END 2024-05-10 23:30 | disposition left against medical advice (07) | DRG 641 ==
LOC: ERS 23:55 → SURG A 05-09 02:48
PROVIDERS: ADMIT Student in an Organized Health Care Education/Training Program; ATTEND Internal Medicine
DX: E87.1 Hypo-osmolality and hyponatremia (principal); E27.40 Unspecified adrenocortical insufficiency; F17.210 Nicotine dependence, cigarettes, uncomplicated; E03.9 Hypothyroidism, unspecified; I10 Essential (primary) hypertension; Z88.8 Allergy status to other drugs, medicaments and biological substances; Z88.5 Allergy status to narcotic agent; Z96.651 Presence of right artificial knee joint; Z96.642 Presence of left artificial hip joint; Z98.890 Other specified postprocedural states
CPT/HCPCS: 36415; 71045; 80053; 80306; 80307; 82805; 83735; 83880; 83930; 83935; 84300; 84443; 84484; 85025; 93005; 94760; 96374; A4217; J2272; J3010; Q0162

== ENCOUNTER 2024-05-10 23:26 | Emergency (ER) | payer MEDICARE | END 2024-05-11 17:24 | disposition home or self-care (01) | LOC: ERS 23:26 | DX: E87.1 Hypo-osmolality and hyponatremia (principal) | CPT/HCPCS: 99284 ==